=== PATIENT | female | born 1960 | race Caucasian/White ===

== ENCOUNTER → 2023-07-22 15:47 | Outpatient (REF) | payer OTHER, SELFPAY | LOC: HWRAD 15:47 | PROVIDERS: ATTENDING PHYSICIAN Chiropractor; FAMILY PHYSICIAN Nurse Practitioner Adult Health | DX: M99.01 Segmental and somatic dysfunction of cervical region (principal); M99.03 Segmental and somatic dysfunction of lumbar region; M99.07 Segmental and somatic dysfunction of upper extremity | CPT/HCPCS: 72050; 72110; 73030 ==

== ENCOUNTER → 2023-12-03 08:55 | Outpatient (REF) | payer OTHER, SELFPAY | LOC: HWRAD 08:55 | PROVIDERS: ATTENDING PHYSICIAN Nurse Practitioner Adult Health | DX: R79.89 Other specified abnormal findings of blood chemistry (principal) | CPT/HCPCS: 76700 ==

== ENCOUNTER → 2024-03-29 11:39 | Outpatient (REF) | payer OTHER, SELFPAY | LOC: HWWDC 11:39 | PROVIDERS: ATTENDING PHYSICIAN Obstetrics & Gynecology Gynecology; FAMILY PHYSICIAN Nurse Practitioner Adult Health | DX: Z12.31 Encounter for screening mammogram for malignant neoplasm of breast (principal) | CPT/HCPCS: 77063; 77067 ==

== ENCOUNTER 2024-07-26 06:31 | Day surgery (SDC) | payer OTHER, SELFPAY ==
[2024-07-22 11:23] LABS: Hematocrit 46.4 % (37.0-47.0); Hemoglobin 15.4 g/dL (12.0-16.0); Mean Corp Hgb Conc. 33.2 g/dL (33.0-37.0); Mean Corpuscular Hgb 30.8 pg (27.0-31.0); Mean Corpuscular Volume 92.8 fL (81.0-99.0); Mean Platelet Volume 10.4 fL (7.4-10.4); Platelet Count 232 10^3/uL (130-400); Red Cell Dist. Width 11.9 % (11.5-14.5); White Blood Cell Count 7.7 10^3/uL (4.8-10.8)
[2024-07-22 12:02] LABS: Blood Urea Nitrogen 9 mg/dl (7-17); Calcium 9.3 mg/dl (8.4-10.2); Carbon Dioxide 31 mmol/L (22-30); Chloride 99 mmol/L (98-107); Glucose 93 mg/dl (70-99); Potassium 4.3 mmol/L (3.5-5.1); Sodium 135 mmol/L (135-145); eGFR > 60.00
[2024-07-22 14:13] VITALS: BMI 26.4
[2024-07-26] VITALS (8 sets, daily range): BP systolic 131–186; BP diastolic 61–100; BMI 26.4
[2024-07-26] MEDS: Pyridium 200 MG PO (14:43)
[2024-07-26] MEDS: HEPARIN 5000 UNITS SC (14:44)
[2024-07-26] MEDS: NORMOSOL-R/PLASMALYTE-A 1000 IV ×2 (14:45→22:32)
[2024-07-26] MEDS: TORADOL 15 MG IV (20:57)
[2024-07-26] MEDS: COLACE PO (22:33)
--- NOTE | 2024-07-26 22:34 | PTCARENOTE ---
21:45 pt rec'vd from PACU drowsy but easily arousable to verbal, pt with indwelling arreola in place draining yellow urine, 5 lap sites and no vaginal bleeding observed on assessment. VS stable, oriented to unit , bat the bedside.
[2024-07-27] MEDS: TORADOL 15 MG IV ×3 (02:04→13:48)
[2024-07-27] MEDS: MYLICON 80 MG PO (02:04)
[2024-07-27 03:34] VITALS: BP 111/69
[2024-07-27] MEDS: NORMOSOL-R/PLASMALYTE-A 1000 IV (05:36)
[2024-07-27 06:25] LABS: Hematocrit 41.3 % (37.0-47.0); Hemoglobin 14.1 g/dL (12.0-16.0); Mean Corp Hgb Conc. 34.1 g/dL (33.0-37.0); Mean Corpuscular Volume 90.8 fL (81.0-99.0); Mean Platelet Volume 9.8 fL (7.4-10.4); Platelet Count 231 10^3/uL (130-400); Red Blood Cell Count 4.55 10^6/uL (4.20-5.40); Red Cell Dist. Width 11.7 % (11.5-14.5)
[2024-07-27 06:47] LABS: Blood Urea Nitrogen 9 mg/dl (7-17); Carbon Dioxide 24 mmol/L (22-30); Chloride 101 mmol/L (98-107); Estimated Creatinine Clearance 82 ml/min; Potassium 4.4 mmol/L (3.5-5.1); Sodium 134 mmol/L (135-145)
--- NOTE | 2024-07-27 07:55 | W.PN.GYN ---
Today's Communication / Plan
-
followup TOV, discharge home
Physician Note
-
Patient is a 64yoF PMH POP and CADENCE currently POD1 sp ,robotic total hysterectomy, BSO, sacrocolpopexy, posteiror colporrhaphy with perineoplasty, single incision sling and cystoscopy on 07/26/24. Of note intraop 15cm suspected uterine fibroid was
identified and removed.
Patient was evaluated on AM rounds. Patient reports arreola was removed this morning and she voided once without difficulty. Reports some burning with urination. Reports minimal vaginal bleeding and notes some abdominal bloating which has improved
with simethicone. She is tolerating drinking liquids and haven't eaten solids yet. Denies chest pain, sob, nausea.
O:
GA: Well appearing female in NAD
HEENT: EOMI, normocephalic
Abd: Soft, nondistended, incisions closed with dermabond. Minimal eccymosis around lateral incisions. Mild tenderness to palpation
: minimal blood on bed chaitanya
Ext: no LE edema noted
Vital Signs
Temp Pulse Resp BP Pulse Ox
99.3 F 86 16 111/69 95
07/27/24 03:34 07/27/24 03:34 07/27/24 03:34 07/27/24 03:34 07/27/24 03:34
Intake and Output
07/26/24 07/27/24 07/28/24
06:59 06:59 06:59
Intake Total 1490 / 1490
Output Total 1400 / 1400
Balance 90 / 90
Intake:
Oral fluids 240 / 240
IV fluids (Total) 1250 / 1250
Output:
Urine, Arreola 1400 / 1400
Laboratory Results
07/27/24 05:19
07/27/24 05:19
A/P:
64yoF POD1 sp robotic total hysterectomy, BSO, sacrocolpopexy, posterior colporrhaphy with perineoplasty, single incision sling, 15cm uterine fibroid removal, cystoscopy. AM labs and vitals WNL. Patient is recovering appropriately.
- Followup trial of void
- Continue home medications
- May stop IVF
- Continue tylenol/ibuprofen prn for pain; dilaudid for severe pain
- Simethicone prn for gas pain
- DVT prophylaxis with SCDs
- Ambulate with assistance
- Regular diet
- Likely discharge home after tolerating breakfast
-
[2024-07-27 08:00] VITALS: BP 128/73
[2024-07-27] MEDS: COLACE 100 MG PO (09:22)
[2024-07-27 11:35] VITALS: BP 143/77
--- NOTE | 2024-07-27 11:39 | CM ---
Met with pt at bedside
Pt lives in a 2 story home with her and son; 2 steps to enter, 13 steps to 2nd fl. + 1/2 bath on FF
Independent at baseline, retired, drives
DME - none
SNF/HH - denies past hx
Has ride at discharge
PCP - Tran Acevedo
Pharm - [facility]
Plan - anticipate home no needs
[2024-07-27] MEDS: NORVASC 5 MG PO (13:48)
[2024-07-27] MEDS: FLUSH (NSS) 1 FLUSH IV (13:49)
== END 2024-07-27 14:45 | disposition home or self-care (01) ==
LOC: SDS 06:31
PROVIDERS: ATTENDING PHYSICIAN Obstetrics & Gynecology; FAMILY PHYSICIAN Nurse Practitioner Adult Health
DX: N81.4 Uterovaginal prolapse, unspecified (principal); D25.9 Leiomyoma of uterus, unspecified; N39.3 Stress incontinence (female) (male); N83.8 Other noninflammatory disorders of ovary, fallopian tube and broad ligament; N83.299 Other ovarian cyst, unspecified side; N36.41 Hypermobility of urethra
CPT/HCPCS: 57425; 58573; 57288; 57250; 88305; 36415; 80048; 80051; 82565; 84520; 85027; 86850; 86900; 86901; 88341; 88342; 93005; C1763; C1771

== ENCOUNTER → 2025-04-11 15:33 | Outpatient (REF) | payer OTHER, SELFPAY | LOC: HWWDC 15:33 | PROVIDERS: ATTENDING PHYSICIAN Obstetrics & Gynecology Gynecology; FAMILY PHYSICIAN Nurse Practitioner Adult Health | DX: Z12.31 Encounter for screening mammogram for malignant neoplasm of breast (principal) | CPT/HCPCS: 77063; 77067 ==

== ENCOUNTER → 2025-04-18 09:34 | Outpatient (REF) | payer OTHER, SELFPAY | LOC: WDC 09:34 | PROVIDERS: ATTENDING PHYSICIAN Obstetrics & Gynecology Gynecology; FAMILY PHYSICIAN Nurse Practitioner Adult Health | DX: R92.8 Other abnormal and inconclusive findings on diagnostic imaging of breast (principal) | CPT/HCPCS: 76642 ==

== ENCOUNTER → 2025-04-25 08:52 | Outpatient (REF) | payer OTHER, SELFPAY ==
--- NOTE | 2025-04-25 13:23 | OID.BR.INTR ---
EBD Breast Navigator - Initial
- -
Date of Contact: 04/25/25
Met with patient. Patient given written information on navigator service available at [facility]. Will follow up as needed per protocol.
== END ==
LOC: WDC 08:52
PROVIDERS: ATTENDING PHYSICIAN Obstetrics & Gynecology Gynecology; FAMILY PHYSICIAN Nurse Practitioner Adult Health
DX: N63.11 Unspecified lump in the right breast, upper outer quadrant (principal)
CPT/HCPCS: 19083; 88305; 88341; 88342; 88360; A4648

== ENCOUNTER → 2025-05-24 12:55 | Outpatient (REF) | payer OTHER, SELFPAY | LOC: WDC 12:55 | PROVIDERS: ATTENDING PHYSICIAN Surgery; FAMILY PHYSICIAN Nurse Practitioner Adult Health | DX: C50.411 Malignant neoplasm of upper-outer quadrant of right female breast (principal); Z17.0 Estrogen receptor positive status [ER+] | CPT/HCPCS: 76641 ==

== ENCOUNTER → 2025-06-01 07:51 | Outpatient (REF) | payer OTHER, SELFPAY | LOC: WDC 07:51 | PROVIDERS: ATTENDING PHYSICIAN Surgery | DX: C50.411 Malignant neoplasm of upper-outer quadrant of right female breast (principal) | CPT/HCPCS: 19285; A4648 ==

== ENCOUNTER 2025-06-02 06:25 | Day surgery (SDC) | payer OTHER, SELFPAY ==
[2025-05-18 11:08] LABS: Hematocrit 46.1 % (37.0-47.0); Hemoglobin 15.3 g/dL (12.0-16.0); Mean Corp Hgb Conc. 33.2 g/dL (33.0-37.0); Mean Corpuscular Volume 91.8 fL (81.0-99.0); Platelet Count 249 10^3/uL (130-400); Red Cell Dist. Width 12.1 % (11.5-14.5)
[2025-05-18 11:15] LABS: ALT (SGPT) 26 U/L (0-35); AST (SGOT) 27 U/L (14-36); Albumin 4.7 g/dl (3.5-5.0); Alkaline Phosphatase 93 U/L (38-126); Blood Urea Nitrogen 12 mg/dl (7-17); Calcium 9.4 mg/dl (8.4-10.2); Carbon Dioxide 31 mmol/L (22-30); Chloride 101 mmol/L (98-107); Glucose 81 mg/dl (70-99); Potassium 4.7 mmol/L (3.5-5.1); Sodium 137 mmol/L (135-145); Total Protein 7.7 g/dl (6.3-8.2); eGFR > 60.00
[2025-05-18 11:39] LABS: Prealbumin (Transthyretin) 25.9 mg/dl (17.6-36.0)
[2025-05-18 11:50] LABS: Vitamin D, 25-OH*** 36.5 ng/mL (30-80)
[2025-05-18 13:49] VITALS: BMI 25.8
[2025-06-02 12:58] VITALS: BMI 25.8
[2025-06-02 13:03] VITALS: BP 146/89
[2025-06-02] MEDS: TYLENOL 1000 MG PO (13:15)
[2025-06-02] MEDS: NORMOSOL-R/PLASMALYTE-A 1000 IV (13:16)
[2025-06-02] MEDS: VANCOCIN 200 IV (13:51)
[2025-06-02] MEDS: LOVENOX 40 MG SC (15:16)
--- NOTE | 2025-06-02 16:59 | W.IMMPOSTOP ---
Surgical Immed Post Op Note
-
Primary Surgeon: Yesica
Assisting Surgeon: None
Pre-op Diagnosis: Right breast ca
Post-op Diagnosis: Same
Procedure Performed: Right localized lumpectomy
Anesthesia Type: TIVA
Specimen / Cultures: Left axillary mass
Estimated Blood Loss: 4cc
Complications: None
Operative Findings: Clip and reflector in specimen
--- NOTE | 2025-06-02 17:00 | OR.RPT ---
Operative Report
Operative Report
Date of procedure: 06/02/2025
Surgeon: Yesica
Preoperative diagnosis: Right breast carcinoma
Postoperative diagnosis: Right breast carcinoma
Procedure: Right localized lumpectomy
The patient is a 65-year-old female who had an image-detected interval change on screening mammography resulting in a biopsy showing invasive ductal carcinoma with favorable histologic features and negative axillary nodes by imaging. She met
criteria to forego axillary uli sampling and she presents for right localized lumpectomy. On the day prior to the procedure the patient presented to the [facility] where a Caitie reflector was placed at the tumor site. On the day
of surgery she presented to the same-day surgical services unit. She was prepped and verified site and procedure. DVT and antibiotic prophylaxis were delivered.
She was taken to the operating room and in the supine position intravenous sedation was delivered. The right breast was prepped and draped in the usual sterile fashion. All team members performed an appropriate timeout procedure.
All tissues were anesthetized with 1% lidocaine plain. A curvilinear incision was made overlying the area of highest CAITIE signal. Skin flaps were elevated and dissection was carried down to the mass which was widely excised using the cautery.
Time out of body was noted the specimen was oriented for the pathologist. Specimen radiography confirmed the presence of clip and reflector within it.
Additional margins were taken for permanent analysis from the posterior, medial, superior, lateral, inferior, and anterior dimensions. These were oriented as well. Hemostasis was verified. Hemoclips were placed in the resection cavity and
Marcaine 0.5% plain was instilled into all tissues. The wound was closed using simple interrupted 2-0 Polysorb on deep and intermediate tissue. Skin was closed using simple interrupted 3-0 Polysorb and subcutaneous tissue and a running
subcuticular 4 Monocryl on skin. Surgical glue and a sterile compressive dressing were applied. All sponge needle and instrument counts were correct and the patient was transferred to the recovery room in stable condition.
()
[2025-06-02 17:03] VITALS: BP 121/69
[2025-06-02 17:15] VITALS: BP 121/76
[2025-06-02 17:30] VITALS: BP 141/76
== END 2025-06-02 17:59 | disposition home or self-care (01) ==
LOC: SDS 06:25
PROVIDERS: ATTENDING PHYSICIAN Surgery; FAMILY PHYSICIAN Nurse Practitioner Adult Health
DX: C50.911 Malignant neoplasm of unspecified site of right female breast (principal); Z17.0 Estrogen receptor positive status [ER+]
CPT/HCPCS: 19301; 36415; 76098; 80053; 82306; 84134; 85027; 88305; 88307; 88341; 88342; 88360; 93005